=== PATIENT | female | born 1940 | race Caucasian/White ===

== ENCOUNTER → 2017-10-13 | Outpatient (CLI) | payer MEDICARE, BC ==
[~2017-10-13] MED LIST: ALBIPROI INH; ALBU90OI61 INH; ASCO500 PO; AZIT250 PO; Augmentin 875-1 EACH PO; Bactrim Ds Tab1 EACH PO; CELE100; CELE200 PO; DIPATR PO; ERGO400; FISH OIL + D31 EACH; FISH1000; FLUSAL1005 IH; FLUSAL2505 IH; FLUT.05NI; FURO20 PO; HYDACE5 PO; HYDR1TAB94 PO; IBUP800 PO; Imitrex25 MG PO; LEVFLO250; LISI10 PO; LISI20 PO; LISI5 PO; MAGOXI400; MULT50L; MULVITMIND PO; Magnesium27 MG; Norco 5-325 Ta1 EACH PO; OXAP600; OXAP600 PO; OXYM.05NI; PANT40 PO; POLY500; POLY500 PO; POTA10T PO; PRED10; PROP120ER; PROP60 PO; Percocet 5-3251 EACH PO; Pseudoephedrine30 MG PO; RABE20 PO; SERT25; SERT50 PO; SULTRIDS PO; SUMA20NI; SUMA25 PO; THYR60 PO; Vitamin C100 M1; Zofran Odt4 MG PO; Zofran4 MG PO
== END | disposition home or self-care (01) ==
LOC: LAB 16:31
DX: L08.0 Pyoderma (principal)
CPT/HCPCS: 87070; 87205

== ENCOUNTER → 2018-03-02 | Outpatient (CLI) | payer MEDICARE, BC | END | disposition home or self-care (01) | LOC: LAB SHORT 10:49 → PLD 10:49 | DX: D04.39 Carcinoma in situ of skin of other parts of face (principal) | CPT/HCPCS: 88305 ==

== ENCOUNTER → 2018-09-28 | Outpatient (CLI) | payer MEDICARE, BC ==
[2018-09-28 14:34] LABS: Body Fluid Crystals NEG (NEGATIVE)
[2018-09-28 14:49] LABS: BODY FLUID RBC 0.008 (0-0); RBC Count, Synovial Fluid 8000 /mm3 (0-0); WBC Count, Synovial Fluid 68 /mm3 (0-180)
[2018-09-28 14:56] LABS: Appearance, Synovial Fluid Hazy (Clear); Color, Synovial Fluid Dark Yellow (None-P Yel)
[2018-09-28 15:22] LABS: Lymphs, Synovial Fluid 40 % (0-15); Monocytes/Macrophages, Synovia 35 % (0-65); Neutrophils, Synovial Fluid 25 % (0-24)
== END | disposition home or self-care (01) ==
LOC: LAB SHORT 14:10 → LAB 14:10
PROVIDERS: Family Medicine
DX: M17.0 Bilateral primary osteoarthritis of knee (principal)
CPT/HCPCS: 87070; 87075; 87077; 87147; 87186; 87205; 89051; 89060

== ENCOUNTER 2018-11-19 14:32 | Emergency (ER) | payer MEDICARE, BC ==
[~2018-11-19] VITALS: Ht 167.6 cm; Wt 117.9 kg
== END 2018-11-19 16:39 | disposition home or self-care (01) ==
LOC: ER 14:32
DX: G43.009 Migraine without aura, not intractable, without status migrainosus (principal); I10 Essential (primary) hypertension; K21.9 Gastro-esophageal reflux disease without esophagitis; E03.9 Hypothyroidism, unspecified; Z87.891 Personal history of nicotine dependence; Z88.1 Allergy status to other antibiotic agents; Z88.8 Allergy status to other drugs, medicaments and biological substances; Z79.899 Other long term (current) drug therapy
CPT/HCPCS: 36415; 70450; 96361; 96374; 96375; 99284-25; J0780; J1200; J1885; J7030

== ENCOUNTER → 2018-12-07 | Outpatient (CLI) | payer MEDICARE, BC | LOC: LAB 19:01 → LAB SHORT 19:01 | DX: R30.0 Dysuria (principal) | CPT/HCPCS: 87077; 87086; 87186 ==

== ENCOUNTER 2019-04-06 11:24 | Day surgery (SDC) | payer MEDICARE, BC ==
[~2019-04-06] VITALS: Ht 167.6 cm; Wt 104.6 kg
[~2019-04-06 11:24] MED LIST changes: +Adalat Cc30 MG PO; +BUPR75 PO; +CHOL10002 PO; -ERGO400; +ERGO400 PO; +FIBER CAP PO; +GARCINIA CAMBO1 EACH PO; +GREEN COFFEE B400 MG PO; +LEVSOD100 PO; +MAGNESIUM400 MG PO; -Magnesium27 MG; +Magnesium27 MG PO; +NITR100CA PO; -PROP120ER; +PROP120ER PO; +THERA1 EACH PO; -Vitamin C100 M1; +Vitamin C100 M1 PO
--- NOTE | 2019-04-06 12:29 | NUR ---
PATIENT WAS UNABLE TO COME IN ADVANCE FOR HER TYPE AND SCREEN. UPON IV START, SPECIMEN DRAWN AND SENT TO LAB. CALL PLACED TO LAB TO NOTIFY THEM OF SPECIMEN SENT AND A STAT STATUS.
--- NOTE | 2019-04-06 12:32 | NUR ---
Surgical site prepped with 2% Chlorhexidine cloth wipe. History, Chart, Medications and Allergies reviewed before start of procedure. Lungs clear T/O to Auscultation. Patient confirms NPO status and agrees with scheduled surgery. Pre-Op teaching done. Pt verbalizes understanding. Patient reports completing Chlorhexadine shower X2 prior to admission to hospital.
[2019-04-06] MEDS ORDERED: BUPROPION XL150 MG PO (13:38)
--- NOTE | 2019-04-06 17:23 | NUR ---
PT ARRIVED TO THE ROOM AT APPROXIMATELY 1707. PT ALERT AND ORIENTED. VSS. WILL CONTINUE TO MONITOR.
--- NOTE | 2019-04-06 19:51 | NUR ---
SHIFT SUMMARY PAIN MANAGED WITH PO PAIN MEDICATION POST OP. PT HAS FULL SENSATION TO BLE. TOLERATING PO WELL. VSS. REPORT GIVEN TO SATISH ALONZO.
--- NOTE | 2019-04-07 04:00 | NUR ---
NO CHANGES SINCE START OF SHIFT. SAFETY MEASURES IN PLACE. HAND OFF GIVEN TO Trino FOWLER RN USING SBAR.
--- NOTE | 2019-04-07 04:02 | NUR ---
ASSUMED CARE OF PT. PT IS AWAKE, ALERT & ORIENTED X4. PT ASSISTED BACK TO BED FROM BATHROOM. SMALL AMOUNT OF BLEEDING NOTED ON GINO WRAP. BLOOD SPOT WAS TRACED, DATED AND TIMED. POLAR PACK REPLACED. PT STATES PAIN IS TOLERABLE AT THIS TIME. CIRC REMAINS WNL, WCTM. CALL LIGHT IN REACH.
[2019-04-07 04:33] LABS: BASOPHILS ABSOLUTE AUTO 0.03 K/mm3 (0.00-0.23); BASOPHILS PERCENT AUTO 0 % (0-2); EOSINOPHILS PERCENT AUTO 0 % (0-6); Hematocrit 35.1 % (33.0-51.0); Hemoglobin 11.3 g/dL (11.5-16.0); IMMATURE GRAN ABSOLUTE AUTO 0.05 K/mm3 (0.00-0.10); IMMATURE GRAN PERCENT AUTO 0 % (0-1); LYMPHOCYTES ABSOLUTE AUTO 1.74 K/mm3 (0.84-5.20); LYMPHOCYTES PERCENT AUTO 14 % (21-46); MONOCYTES ABSOLUTE AUTO 0.88 K/mm3 (0.16-1.47); MONOCYTES PERCENT AUTO 7 % (4-13); Mean Corpuscular HGB 28.8 pg (26.0-34.0); Mean Corpuscular HGB Conc 32.2 g/dL (31.5-36.5); Mean Corpuscular Volume 89 fL (80-100); Mean Platelet Volume 12.2 fL (9.1-12.4); NEUTROPHILS ABSOLUTE AUTO 10.22 K/mm3 (1.96-9.15); NEUTROPHILS PERCENT AUTO 79 % (41-73); Platelet Count 208 K/mm3 (150-400); RDW Coefficient Variation 13.4 % (11.7-14.2); RDW Standard Deviation 44.2 fL (35.1-46.3); Red Blood Cell Count 3.93 M/mm3 (3.80-5.20); White Blood Cell Count 12.92 K/mm3 (4.00-11.30)
[2019-04-07 04:46] LABS: Anion Gap 7 mmol/L (6-16); Blood Urea Nitrogen 17 mg/dL (8-24); Bun/Creatinine Ratio 19.9 (12.0-20.0); CO2, Blood 26 mmol/L (21-32); Calcium, Blood 8.6 mg/dL (8.5-10.1); Chloride, Blood 106 mmol/L (98-108); Creatinine, Blood 0.85 mg/dL (0.40-1.00); Glomerular Filtration Rate >60 (60-); Glucose, Blood 123 mg/dL (70-99); Magnesium, Blood 1.6 mg/dL (1.6-2.4); Potassium, Blood 4.3 mmol/L (3.5-5.5); Sodium, Blood 139 mmol/L (136-145)
--- NOTE | 2019-04-07 05:33 | NUR ---
PATIENT BACK TO BED AFTER USING RESTROOM. CALL LIGHT IN REACH. RN NOTIFIED OF SOME BLEEDING AT SURGICAL SITE THAT PATIENT NOTICIED.
[2019-04-07] MEDS ORDERED: OXYC5 PO (14:27)
--- NOTE | 2019-04-07 15:52 | NUR ---
DISCHARGE: PT AND FAMILY REPORTS UNDERSTANDING OF DISCHARGE INSTRUCTIONS. PT BEEN CLEARED BY THERAPY TO GO HOME. PT GIVEN BELONGINGS INCLUDING ICE MACHINE. PT GIVEN DISCHARGE PAPERWORK INCLUDING SCRIPT FOR PAIN. PT REPORTS HAVING APPR EQUIP AT HOME FOR DISCHARGE. PT SENT WITH DRESSING SUPPLIES WELL JOSSELINE HOSE. PT BEEN EATING AND DRINKING, VOIDING AND PASSING GAS. IV OUT WNL.
== END 2019-04-07 15:55 | disposition home or self-care (01) ==
LOC: ORSCMMR 11:24 → ORD 14:30 → ORSCMMR 14:30 → SURS 17:12 → ORSCMMR 04-07 15:55 → SURS 04-07 15:55
PROVIDERS: Orthopaedic Surgery
PROC: 0SRC0J9 Replacement of Right Knee Joint with Synthetic Substitute, Cemented, Open Approach (ICD-10-PCS; principal; 2019-04-06 14:30)
DX: M17.11 Unilateral primary osteoarthritis, right knee (principal); I10 Essential (primary) hypertension; I25.2 Old myocardial infarction; E03.9 Hypothyroidism, unspecified; Z79.899 Other long term (current) drug therapy; E66.01 Morbid (severe) obesity due to excess calories; Z68.39 Body mass index [BMI] 39.0-39.9, adult
CPT/HCPCS: 36415; 73560-RT; 80048; 83735; 85025; 86850; 86900; 86901; 88300; 97110; 97116; 97162; 97530; C1713; C1776; J0171; J0690; J0735; J1100; J1885; J2250; J2405; J2704; J2795; J3010; J7120

== ENCOUNTER 2019-09-13 15:00 | Emergency (ER) | payer MEDICARE, BC ==
[~2019-09-13] VITALS: Ht 167.6 cm; Wt 104.3 kg
[~2019-09-13 15:00] MED LIST changes: +BUPROPION XL150 MG PO; +OXYC5 PO
[2019-09-13 15:26] LABS: BASOPHILS ABSOLUTE AUTO 0.02 K/mm3 (0.00-0.23); BASOPHILS PERCENT AUTO 0 % (0-2); EOSINOPHILS ABSOLUTE AUTO 0.09 K/mm3 (0.00-0.68); EOSINOPHILS PERCENT AUTO 1 % (0-6); Hematocrit 39.1 % (33.0-51.0); Hemoglobin 12.5 g/dL (11.5-16.0); IMMATURE GRAN ABSOLUTE AUTO 0.07 K/mm3 (0.00-0.10); IMMATURE GRAN PERCENT AUTO 1 % (0-1); LYMPHOCYTES PERCENT AUTO 15 % (21-46); MONOCYTES ABSOLUTE AUTO 0.91 K/mm3 (0.16-1.47); MONOCYTES PERCENT AUTO 8 % (4-13); Mean Corpuscular Volume 88 fL (80-100); Mean Platelet Volume 11.2 fL (9.1-12.4); NEUTROPHILS ABSOLUTE AUTO 8.21 K/mm3 (1.96-9.15); NEUTROPHILS PERCENT AUTO 75 % (41-73); Platelet Count 233 K/mm3 (150-400); RDW Coefficient Variation 14.2 % (11.7-14.2); RDW Standard Deviation 45.9 fL (35.1-46.3); Red Blood Cell Count 4.47 M/mm3 (3.80-5.20)
[2019-09-13 15:33] LABS: Source, Urine Clean Catch
[2019-09-13 15:45] LABS: Bilirubin, Urine Neg (Neg); Blood, Urine 1+ (Neg); Glucose Qualitative, Urine Neg (Neg); Ketones, Urine Neg (Neg); Leukocyte Esterase, Urine 2+ (Neg); Nitrite, Urine Neg (Neg); Protein, Urine 1+ (Neg); Specific Gravity, Urine 1.015 (1.003-1.022); Urobilinogen, Urine NORM (Normal)
[2019-09-13 15:49] LABS: Alanine Aminotransfer (ALT/SGP 19 U/L (12-78); Albumin, Blood 2.9 g/dL (3.4-5.0); Albumin/Globulin Ratio 0.8 (0.8-1.8); Alk Phos 78 U/L (50-136); Anion Gap 7 mmol/L (6-16); Aspartate Aminotrans (AST/SGOT 16 U/L (12-37); Bilirubin, Total 0.4 mg/dL (0.1-1.0); Blood Urea Nitrogen 16 mg/dL (8-24); Bun/Creatinine Ratio 23.2 (12.0-20.0); CO2, Blood 25 mmol/L (21-32); Calcium, Blood 8.6 mg/dL (8.5-10.1); Chloride, Blood 109 mmol/L (98-108); Creatinine, Blood 0.69 mg/dL (0.40-1.00); Globulin, Blood 3.5 g/dL (2.2-4.0); Glomerular Filtration Rate >60 (60-); Glucose, Blood 125 mg/dL (70-99); Potassium, Blood 3.9 mmol/L (3.5-5.5); Sodium, Blood 141 mmol/L (136-145); Total Protein, Blood 6.4 g/dL (6.4-8.2)
[2019-09-13 15:53] LABS: Appearance, Urine Clear (Clear); Color, Urine Yellow (P-Yellow)
[2019-09-13 15:54] LABS: Bacteria Few /hpf; Red Blood Cells, Urine 0-2 /hpf (0-2); Squamous Epithelial Cells Few /hpf (Few); Transitional Epithelial Cells Few /hpf (0-Rare)
[2019-09-13] MEDS ORDERED: Augmentin 875-1 EACH PO (19:03)
[2019-09-13] MEDS ORDERED: ONDA4ODT MM (19:03)
[2019-09-13] MEDS ORDERED: Percocet 7.5-31 EACH PO (19:03)
[2019-10-04] MEDS ORDERED: OXAP600 PO (08:31)
[2019-10-04] MEDS ORDERED: MULTIPLE VITAM1 EACH PO (08:31)
[2019-10-04] MEDS ORDERED: PROP120ER PO (08:31)
[2019-10-04] MEDS ORDERED: PANT40 PO (08:31)
[2019-10-04] MEDS ORDERED: LEVSOD100 PO (08:32)
[2019-10-04] MEDS ORDERED: BUPR150ER PO (08:32)
[2019-10-04] MEDS ORDERED: ZESTRIL40 M1 PO (08:32)
[2019-10-04] MEDS ORDERED: NIFE30ER PO (08:32)
[2019-10-04] MEDS ORDERED: MAGNESIUM OXID500 MG PO (08:33)
[2019-10-04] MEDS ORDERED: VITAMIN D350000 UNIT PO (08:33)
[2019-10-04] MEDS ORDERED: POLY500 PO (08:33)
[2019-10-04] MEDS ORDERED: GREEN COFFEE B400 MG PO (08:34)
[2019-10-04] MEDS ORDERED: GARCINIA CAMBO1 EACH PO (08:34)
== END 2019-09-13 20:15 | disposition home or self-care (01) ==
LOC: ER 15:00
PROVIDERS: Physician Assistant
DX: J01.90 Acute sinusitis, unspecified (principal); J32.9 Chronic sinusitis, unspecified; Z88.8 Allergy status to other drugs, medicaments and biological substances; Z88.1 Allergy status to other antibiotic agents; Z79.899 Other long term (current) drug therapy; I10 Essential (primary) hypertension; K21.9 Gastro-esophageal reflux disease without esophagitis; E03.9 Hypothyroidism, unspecified; G43.909 Migraine, unspecified, not intractable, without status migrainosus; Z87.891 Personal history of nicotine dependence
CPT/HCPCS: 36415; 70450; 80053; 81001; 85025; 87086; 96361; 96365; 96375; 96376; 99284-25; A9270-GY; J1170; J2405; J2543; J7030

== ENCOUNTER 2019-10-08 10:36 | Day surgery (SDC) | payer MEDICARE, BC ==
[~2019-10-08] VITALS: Ht 167.6 cm; Wt 106.8 kg
[~2019-10-08 10:36] MED LIST changes: +BUPR150ER PO; +MAGNESIUM OXID500 MG PO; +MULTIPLE VITAM1 EACH PO; +NIFE30ER PO; +ONDA4ODT MM; +Percocet 7.5-31 EACH PO; +VITAMIN D350000 UNIT PO; +ZESTRIL40 M1 PO
[2019-10-08] MEDS ORDERED: ZOLOFT50 MG PO (11:28)
[2019-10-08] MEDS ORDERED: SUMA25 PO (11:29)
[2019-10-08] MEDS ORDERED: Augmentin 875-1 EACH PO (11:30)
[2019-10-08] MEDS ORDERED: PRED20 PO (11:30)
[2019-10-08] MEDS ORDERED: TRAM50 PO (11:31)
--- NOTE | 2019-10-08 12:32 | NUR ---
10/08/19 1232 Sulema Hunter PT RESTING IN BED, LIGHTS DIMMED PER REQUEST, SON AT BEDSIDE. PT UPDATED ON DELAY. PT DENIES NEEDS AT THIS TIME. CALL LIGHT WITHIN REACH.
--- NOTE | 2019-10-08 13:31 | NUR ---
10/08/19 1331 Pastora Valverde A BRUISE NOTED TO LEFT INNER THIGH WHEN APPLYING GROUNDING PAD.
--- NOTE | 2019-10-08 15:50 | NUR ---
10/08/19 5660 Saima Nguyen PT. VERBALIZES MOUTH BEING DRY. PT. DRINKING WATER. PT. C/O NOSE BURNING SO MEDICATED WITH FENTANYL FOR BURNING PER DR. HARPER. SON AT HER SIDE.
== END 2019-10-08 16:50 | disposition home or self-care (01) ==
LOC: ORSCSDS 10:36
PROVIDERS: Otolaryngology
PROC: 8E09XBZ Computer Assisted Procedure of Head and Neck Region (ICD-10-PCS; principal; 2019-10-08 12:00)
PROC: 09DV4ZZ Extraction of Left Ethmoid Sinus, Percutaneous Endoscopic Approach (ICD-10-PCS; principal; 2019-10-08 12:00)
DX: J32.4 Chronic pansinusitis (principal); I10 Essential (primary) hypertension; I25.2 Old myocardial infarction; E66.01 Morbid (severe) obesity due to excess calories; Z68.38 Body mass index [BMI] 38.0-38.9, adult; Z79.899 Other long term (current) drug therapy
CPT/HCPCS: 87070; 87077; 87186; 87205; 88305; 88312; J0360; J1100; J2250; J2405; J2704; J3010; J7120

== ENCOUNTER → 2019-11-25 | Outpatient (CLI) | payer MEDICARE, BC ==
[~2019-11-25] MED LIST changes: +PRED20 PO; +TRAM50 PO; +ZOLOFT50 MG PO
== END | disposition home or self-care (01) ==
LOC: LAB SHORT 15:35 → LAB 15:35
DX: J01.80 Other acute sinusitis (principal); J32.0 Chronic maxillary sinusitis; J32.8 Other chronic sinusitis
CPT/HCPCS: 87070; 87077; 87186

== ENCOUNTER 2020-08-17 06:36 | Day surgery (SDC) | payer MEDICARE, BC ==
[~2020-08-17] VITALS: Ht 167.6 cm; Wt 115.6 kg
[~2020-08-17 06:36] MED LIST changes: +Cipro500 MG PO; +Levaquin500 MG
--- NOTE | 2020-08-17 07:36 | NUR ---
08/17/20 0736 Michelle Martino LATE ENTRY---PATIENT MULTIPLE IV STICKS DIFFICULT VEINS---1 ATTEMPT IN LEFT WRIST THEN 1 ATTEMPT IN LEFT AC BY ORSC.DFT THEN 1 ATTEMPT RIGHT HAND 1 ATTEMPT RIGHT FOREARM AND GOOD IV IN RIGHT AC BY ORSC.JST PATIENT TOLERATED ALL ATTEMPTS WITH MINIMAL DISCOMFORT
--- NOTE | 2020-08-17 07:52 | NUR ---
08/17/20 0752 Celia Cline 30 MG EPI USED TO SOAK PLEDGETS FOR PACKING
--- NOTE | 2020-08-17 09:36 | NUR ---
08/17/20 0936 Kristel Wetzel V PT RESTING IN RECLINER, FEET ELEVATED, VSS. PT DENIES PAIN BUT STATES SHE IS "ON THE VERGE OF NAUSEA". RN OFFERED PT CRACKERS, SODA, OR A COOL CLOTH ALL OF WHICH PT REFUSED; NO INTERVENTIONS DONE AT THIS TIME. MUSTACH DRESSING WAS REMOVED PER PT'S REQUEST SO SHE COULD "BREATHE BETTER", SMALL DROP OF BLOOD WAS NOTED ON THE DRESSING, NO FURTHER BLEEDING NOTED.
== END 2020-08-17 10:18 | disposition home or self-care (01) ==
LOC: ORSCSDS 06:36
PROVIDERS: Otolaryngology
PROC: 8E09XBZ Computer Assisted Procedure of Head and Neck Region (ICD-10-PCS; principal; 2020-08-17 07:30)
PROC: 09TV4ZZ Resection of Left Ethmoid Sinus, Percutaneous Endoscopic Approach (ICD-10-PCS; principal; 2020-08-17 07:30)
DX: J32.8 Other chronic sinusitis (principal); I10 Essential (primary) hypertension; K21.9 Gastro-esophageal reflux disease without esophagitis; E66.01 Morbid (severe) obesity due to excess calories; Z68.41 Body mass index [BMI] 40.0-44.9, adult; Z79.899 Other long term (current) drug therapy
CPT/HCPCS: 87070; 87075; 87076; 87077; 87185; 87186; 87205; A9270; J0171; J1100; J2250; J2405; J2704; J2710; J3010; J7120

== ENCOUNTER → 2020-11-01 | Outpatient (CLI) | payer MEDICARE, BC ==
[~2020-11-01] MED LIST changes: +ACET500 PO; +AMOCLA875 PO; +Aspir 8181 MG PO; +DICY20 PO; +ONDA4ODT SL
== END ==
LOC: LAB 18:07 → LAB SHORT 18:07
DX: R30.0 Dysuria (principal)
CPT/HCPCS: 87077; 87086; 87186

== ENCOUNTER 2020-11-12 14:14 | Emergency (ER) | payer MEDICARE, BC ==
[~2020-11-12] VITALS: Ht 167.6 cm; Wt 114.3 kg
[~2020-11-12 14:14] MED LIST changes: -ACET500 PO; -AMOCLA875 PO; -Aspir 8181 MG PO; -DICY20 PO; -ONDA4ODT SL
[2020-11-12 14:57] LABS: BASOPHILS ABSOLUTE AUTO 0.05 K/mm3 (0.00-0.23); BASOPHILS PERCENT AUTO 1 % (0-2); EOSINOPHILS ABSOLUTE AUTO 0.37 K/mm3 (0.00-0.68); EOSINOPHILS PERCENT AUTO 4 % (0-6); Hematocrit 39.3 % (33.0-51.0); Hemoglobin 12.6 g/dL (11.5-16.0); IMMATURE GRAN ABSOLUTE AUTO 0.03 K/mm3 (0.00-0.10); IMMATURE GRAN PERCENT AUTO 0 % (0-1); LYMPHOCYTES ABSOLUTE AUTO 2.03 K/mm3 (0.84-5.20); LYMPHOCYTES PERCENT AUTO 20 % (21-46); MONOCYTES ABSOLUTE AUTO 0.96 K/mm3 (0.16-1.47); MONOCYTES PERCENT AUTO 10 % (4-13); Mean Corpuscular HGB 28.3 pg (26.0-34.0); Mean Corpuscular HGB Conc 32.1 g/dL (31.5-36.5); Mean Corpuscular Volume 88 fL (80-100); NEUTROPHILS ABSOLUTE AUTO 6.58 K/mm3 (1.96-9.15); NEUTROPHILS PERCENT AUTO 66 % (41-73); Platelet Count 224 K/mm3 (150-400); RDW Coefficient Variation 13.6 % (11.7-14.2); Red Blood Cell Count 4.45 M/mm3 (3.80-5.20); White Blood Cell Count 10.02 K/mm3 (4.00-11.30)
[2020-11-12 15:30] LABS: Alanine Aminotransfer (ALT/SGP 23 U/L (12-78); Albumin, Blood 3.6 g/dL (3.4-5.0); Alk Phos 61 U/L (50-136); Anion Gap 6 mmol/L (6-16); Aspartate Aminotrans (AST/SGOT 23 U/L (12-37); Bilirubin, Total 0.4 mg/dL (0.1-1.0); Blood Urea Nitrogen 18 mg/dL (8-24); Bun/Creatinine Ratio 25.9 (12.0-20.0); CO2, Blood 27 mmol/L (21-32); Calcium, Blood 9.3 mg/dL (8.5-10.1); Chloride, Blood 110 mmol/L (98-108); Globulin, Blood 3.7 g/dL (2.2-4.0); Glomerular Filtration Rate >60 (60-); Glucose, Blood 99 mg/dL (70-99); Potassium, Blood 3.9 mmol/L (3.5-5.5); Sodium, Blood 143 mmol/L (136-145); Total Protein, Blood 7.3 g/dL (6.4-8.2)
[2020-11-12 16:16] LABS: Source, Urine Clean Catch
[2020-11-12 16:20] LABS: Appearance, Urine Clear (Clear); Bilirubin, Urine Neg (Neg); Blood, Urine Neg (Neg); Color, Urine Yellow (P-Yellow); Glucose Qualitative, Urine Neg (Neg); Ketones, Urine Neg (Neg); Leukocyte Esterase, Urine 1+ (Neg); Nitrite, Urine Neg (Neg); Protein, Urine Neg (Neg); Specific Gravity, Urine 1.025 (1.003-1.022); Urobilinogen, Urine NORM (Normal)
[2020-11-12 16:27] LABS: Amorphous Light (0-Heavy); Bacteria Few /hpf; Red Blood Cells, Urine 0-2 /hpf (0-2); Squamous Epithelial Cells Few /hpf (Few); White Blood Cells, Urine 0-2 /hpf (0-5)
[2020-11-12] MEDS ORDERED: HYDR1TAB94 PO (18:13)
[2020-11-12] MEDS ORDERED: ONDA4ODT SL (18:13)
[2020-11-12] MEDS ORDERED: AMOCLA875 PO (18:13)
== END 2020-11-12 19:15 | disposition home or self-care (01) ==
LOC: ER 14:14
PROVIDERS: Physician Assistant
DX: K57.30 Diverticulosis of large intestine without perforation or abscess without bleeding (principal); I10 Essential (primary) hypertension; R11.2 Nausea with vomiting, unspecified; E03.9 Hypothyroidism, unspecified; J45.909 Unspecified asthma, uncomplicated; Z88.8 Allergy status to other drugs, medicaments and biological substances; Z88.2 Allergy status to sulfonamides; Z88.1 Allergy status to other antibiotic agents; Z79.899 Other long term (current) drug therapy
CPT/HCPCS: 36415; 74177; 80053; 81001; 85025; 87086; 96361; 96365-59; 96375; 99284-25; A9270; J1170; J2405; J2543; J7120; Q9967

== ENCOUNTER 2020-12-07 21:00 | Emergency (ER) | payer MEDICARE, BC ==
[~2020-12-07] VITALS: Ht 167.6 cm; Wt 114.8 kg
[~2020-12-07 21:00] MED LIST changes: +AMOCLA875 PO; +ONDA4ODT SL
[2020-12-07 21:27] LABS: BASOPHILS ABSOLUTE AUTO 0.05 K/mm3 (0.00-0.23); BASOPHILS PERCENT AUTO 0 % (0-2); EOSINOPHILS ABSOLUTE AUTO 0.36 K/mm3 (0.00-0.68); EOSINOPHILS PERCENT AUTO 3 % (0-6); Hematocrit 37.8 % (33.0-51.0); Hemoglobin 12.2 g/dL (11.5-16.0); IMMATURE GRAN ABSOLUTE AUTO 0.04 K/mm3 (0.00-0.10); IMMATURE GRAN PERCENT AUTO 0 % (0-1); LYMPHOCYTES ABSOLUTE AUTO 1.59 K/mm3 (0.84-5.20); LYMPHOCYTES PERCENT AUTO 12 % (21-46); MONOCYTES ABSOLUTE AUTO 1.03 K/mm3 (0.16-1.47); MONOCYTES PERCENT AUTO 8 % (4-13); Mean Corpuscular HGB 28.2 pg (26.0-34.0); Mean Corpuscular HGB Conc 32.3 g/dL (31.5-36.5); Mean Corpuscular Volume 87 fL (80-100); Mean Platelet Volume 11.9 fL (9.1-12.4); NEUTROPHILS ABSOLUTE AUTO 9.84 K/mm3 (1.96-9.15); NEUTROPHILS PERCENT AUTO 76 % (41-73); Platelet Count 266 K/mm3 (150-400); RDW Standard Deviation 45.5 fL (35.1-46.3); Red Blood Cell Count 4.33 M/mm3 (3.80-5.20); White Blood Cell Count 12.91 K/mm3 (4.00-11.30)
[2020-12-07 21:46] LABS: Alanine Aminotransfer (ALT/SGP 23 U/L (12-78); Albumin, Blood 3.5 g/dL (3.4-5.0); Albumin/Globulin Ratio 0.9 (0.8-1.8); Alk Phos 59 U/L (50-136); Anion Gap 5 mmol/L (6-16); Aspartate Aminotrans (AST/SGOT 21 U/L (12-37); Bilirubin, Total 0.4 mg/dL (0.1-1.0); Blood Urea Nitrogen 19 mg/dL (8-24); Bun/Creatinine Ratio 26.7 (12.0-20.0); CO2, Blood 28 mmol/L (21-32); Calcium, Blood 9.3 mg/dL (8.5-10.1); Chloride, Blood 107 mmol/L (98-108); Creatinine, Blood 0.71 mg/dL (0.40-1.00); Glomerular Filtration Rate >60 (60-); Glucose, Blood 135 mg/dL (70-99); Potassium, Blood 4.2 mmol/L (3.5-5.5); Sodium, Blood 140 mmol/L (136-145); Total Protein, Blood 7.5 g/dL (6.4-8.2)
[2020-12-07 23:04] LABS: Source, Urine Clean Catch
[2020-12-07 23:07] LABS: Bilirubin, Urine Neg (Neg); Blood, Urine 2+ (Neg); Glucose Qualitative, Urine Neg (Neg); Ketones, Urine Neg (Neg); Leukocyte Esterase, Urine 1+ (Neg); Nitrite, Urine Pos (Neg); Protein, Urine Neg (Neg); Specific Gravity, Urine 1.015 (1.003-1.022); Urobilinogen, Urine NORM (Normal)
[2020-12-07 23:12] LABS: Appearance, Urine Hazy (Clear); Color, Urine Yellow (P-Yellow)
[2020-12-07 23:20] LABS: Bacteria Many /hpf; Red Blood Cells, Urine Rare /hpf (0-2); Squamous Epithelial Cells Not Seen /hpf (Few); White Blood Cells, Urine 0-2 /hpf (0-5)
[2020-12-07] MEDS ORDERED: AMOCLA875 PO (23:41)
[2020-12-07] MEDS ORDERED: DICY20 PO (23:41)
== END 2020-12-08 00:08 | disposition home or self-care (01) ==
LOC: ER 21:00
PROVIDERS: Physician Assistant
DX: K57.32 Diverticulitis of large intestine without perforation or abscess without bleeding (principal); I10 Essential (primary) hypertension; K21.9 Gastro-esophageal reflux disease without esophagitis; E03.9 Hypothyroidism, unspecified; J45.909 Unspecified asthma, uncomplicated; Z88.1 Allergy status to other antibiotic agents; Z88.8 Allergy status to other drugs, medicaments and biological substances; Z88.2 Allergy status to sulfonamides; Z79.899 Other long term (current) drug therapy
CPT/HCPCS: 36415; 74177; 80053; 81001; 83605; 83690; 85025; 87077; 87086; 87186; 96372-59; 99284-25; A9270; J0500; Q9967

== ENCOUNTER 2021-04-02 10:21 | Day surgery (SDC) | payer MEDICARE, BC ==
[~2021-04-02] VITALS: Ht 167.6 cm; Wt 112.2 kg
[~2021-04-02 10:21] MED LIST changes: +DICY20 PO
--- NOTE | 2021-04-02 11:41 | NUR ---
History, Chart, Medications and Allergies reviewed before start of procedure.Pre-Op teaching done. Pt verbalizes understanding.
--- NOTE | 2021-04-02 12:48 | NUR ---
CONFIRMED ANCEF ORDER WITH DR DESPITE CEPHALOSPORIN ALLERGY. PT HAS HX OF TAKING ANCEF IN 2019 WITH NO ADVERSE REACTION.
--- NOTE | 2021-04-02 18:57 | NUR ---
SHIFT SUMMARY PT STATUS POST FOR L TOTAL KNEE. AQUACEL DRESSING IN PLACE CDI, POLAR PACK DRESSING PLACE. NO C/O PAIN AND IS ABLE TO WIGGLE TOES BUT CANNOT FEEL FEET. PT HYPERTENSIVE AFTER SURGERY, WHICH IS HER BASELINE AND STARTED ON HOME BP MEDICATIONS. A/O X4 AND ABLE TO MAKE NEEDS KNOWN. WILL REPORT TO SATISH ALONZO.
--- NOTE | 2021-04-03 04:36 | NUR ---
SHIFT SUMMARY PT DOING WELL POST OP. TYLENOL + TORADOL + 1 ROXICODONE FOR PAIN MANAGMENT. UP TO BRP WITH 1 ASSIST USING FWW + GB AND WBAT. AQUACEL DRESSING TO LEFT KNEE REMAINS CDI WITH POLAR PACK IN PLACE. IV SL. GOOD PO INTAKE. PLAN FOR PT/OT TODAY. USES CALL LIGHT APPROPRIATELY.
[2021-04-03 05:13] LABS: BASOPHILS ABSOLUTE AUTO 0.02 K/mm3 (0.00-0.23); BASOPHILS PERCENT AUTO 0 % (0-2); EOSINOPHILS PERCENT AUTO 0 % (0-6); Hematocrit 36.5 % (33.0-51.0); Hemoglobin 11.7 g/dL (11.5-16.0); IMMATURE GRAN ABSOLUTE AUTO 0.03 K/mm3 (0.00-0.10); IMMATURE GRAN PERCENT AUTO 0 % (0-1); LYMPHOCYTES ABSOLUTE AUTO 1.08 K/mm3 (0.84-5.20); LYMPHOCYTES PERCENT AUTO 12 % (21-46); MONOCYTES ABSOLUTE AUTO 0.56 K/mm3 (0.16-1.47); MONOCYTES PERCENT AUTO 6 % (4-13); Mean Corpuscular HGB 28.7 pg (26.0-34.0); Mean Corpuscular HGB Conc 32.1 g/dL (31.5-36.5); Mean Corpuscular Volume 90 fL (80-100); Mean Platelet Volume 12.4 fL (9.1-12.4); NEUTROPHILS ABSOLUTE AUTO 7.18 K/mm3 (1.96-9.15); NEUTROPHILS PERCENT AUTO 81 % (41-73); Platelet Count 164 K/mm3 (150-400); RDW Coefficient Variation 13.4 % (11.7-14.2); RDW Standard Deviation 43.6 fL (35.1-46.3); Red Blood Cell Count 4.07 M/mm3 (3.80-5.20); White Blood Cell Count 8.87 K/mm3 (4.00-11.30)
[2021-04-03 05:39] LABS: Anion Gap 6 mmol/L (6-16); Blood Urea Nitrogen 17 mg/dL (8-24); Bun/Creatinine Ratio 22.7 (12.0-20.0); CO2, Blood 27 mmol/L (21-32); Calcium, Blood 8.5 mg/dL (8.5-10.1); Chloride, Blood 104 mmol/L (98-108); Creatinine, Blood 0.75 mg/dL (0.40-1.00); Glomerular Filtration Rate >60 (60-); Glucose, Blood 134 mg/dL (70-99); Magnesium, Blood 1.9 mg/dL (1.6-2.4); Potassium, Blood 4.1 mmol/L (3.5-5.5); Sodium, Blood 137 mmol/L (136-145)
[2021-04-03] MEDS ORDERED: ACET500 PO (09:58)
[2021-04-03] MEDS ORDERED: Aspir 8181 MG PO (09:58)
[2021-04-03] MEDS ORDERED: OXYC5 PO (09:59)
--- NOTE | 2021-04-03 10:38 | NUR ---
DC'D HOME, CLEARED PHYS. 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
== END 2021-04-03 10:33 | disposition home or self-care (01) ==
LOC: ORSCMMR 10:21 → ORD 12:30 → ORSCMMR 12:30 → SURS 16:09 → ORSCMMR 04-03 10:33 → SURS 04-03 10:33
PROVIDERS: Orthopaedic Surgery
PROC: 8E0Y0CZ Robotic Assisted Procedure of Lower Extremity, Open Approach (ICD-10-PCS; principal; 2021-04-02 12:30)
PROC: 0SRD0JA Replacement of Left Knee Joint with Synthetic Substitute, Uncemented, Open Approach (ICD-10-PCS; principal; 2021-04-02 12:30)
DX: M17.12 Unilateral primary osteoarthritis, left knee (principal); I10 Essential (primary) hypertension; K21.9 Gastro-esophageal reflux disease without esophagitis; E03.9 Hypothyroidism, unspecified; E66.01 Morbid (severe) obesity due to excess calories; Z68.39 Body mass index [BMI] 39.0-39.9, adult; Z79.899 Other long term (current) drug therapy
CPT/HCPCS: 27447; S2900; 36415; 73560-LT; 80048; 83735; 85025; 97110; 97116; 97162; A9270; C1776; J0171; J0690; J0735; J1100; J1885; J2250; J2405; J2704; J2795; J3010; J7120

== ENCOUNTER → 2021-07-17 | Outpatient (CLI) | payer MEDICARE, BC ==
[~2021-07-17] MED LIST changes: +ACET500 PO; +Aspir 8181 MG PO
[2021-07-17 13:43] LABS: Appearance, Urine Cloudy (Clear); Bilirubin, Urine Neg (Neg); Blood, Urine Neg (Neg); Color, Urine Yellow (P-Yellow); Glucose Qualitative, Urine Neg (Neg); Ketones, Urine Neg (Neg); Leukocyte Esterase, Urine 1+ (Neg); Nitrite, Urine Pos (Neg); Protein, Urine 1+ (Neg); Specific Gravity, Urine 1.025 (1.003-1.022); Urobilinogen, Urine NORM (Normal)
[2021-07-17 14:00] LABS: Amorphous Light (0-Heavy); Bacteria Many /hpf; Red Blood Cells, Urine 0-2 /hpf (0-2); Squamous Epithelial Cells Few /hpf (Few); White Blood Cells, Urine 0-2 /hpf (0-5)
== END | disposition home or self-care (01) ==
LOC: LAB SHORT 11:39 → LAB 11:39 → LAB FUT 07-16 14:40
PROVIDERS: Legal Medicine
DX: N39.0 Urinary tract infection, site not specified (principal)
CPT/HCPCS: 81001; 87077; 87086; 87186

== ENCOUNTER 2021-08-27 09:26 | Emergency (ER) | payer MEDICARE, BC ==
[~2021-08-27] VITALS: Ht 167.6 cm; Wt 114.3 kg
[2021-08-27 11:45] LABS: Source, Urine Catheter
[2021-08-27 11:48] LABS: Appearance, Urine Clear (Clear); Bilirubin, Urine Neg (Neg); Blood, Urine 1+ (Neg); Color, Urine Yellow (P-Yellow); Glucose Qualitative, Urine 2+ (Neg); Ketones, Urine Neg (Neg); Leukocyte Esterase, Urine Neg (Neg); Nitrite, Urine Pos (Neg); Protein, Urine 2+ (Neg); Urobilinogen, Urine NORM (Normal); pH, Urine 6.5 (5.0-8.0)
[2021-08-27 11:58] LABS: White Blood Cells, Urine 0-2 /hpf (0-5)
[2021-08-27 12:00] LABS: Amorphous Mod (0-Heavy); Bacteria Many /hpf; Mucus Light (0-Heavy); Squamous Epithelial Cells Few /hpf (Few)
[2021-08-27] MEDS ORDERED: ONDA4ODT SL (12:29)
[2021-08-27] MEDS ORDERED: MECL12.5 PO (12:29)
== END 2021-08-27 13:03 | disposition home or self-care (01) ==
LOC: ER 09:26
PROVIDERS: Emergency Medicine
DX: R42 Dizziness and giddiness (principal); K21.9 Gastro-esophageal reflux disease without esophagitis; I10 Essential (primary) hypertension; E03.9 Hypothyroidism, unspecified; G43.909 Migraine, unspecified, not intractable, without status migrainosus; Z87.891 Personal history of nicotine dependence; Z88.8 Allergy status to other drugs, medicaments and biological substances; Z88.1 Allergy status to other antibiotic agents; Z79.899 Other long term (current) drug therapy
CPT/HCPCS: 81001; 87077; 87086; 87186; 93005; 93010; 96374; 99284-25; A9270; J1790; J7030

== ENCOUNTER 2022-12-11 09:01 | Day surgery (SDC) | payer MEDICARE, BC ==
[~2022-12-11] VITALS: Ht 167.6 cm; Wt 112.3 kg
[~2022-12-11 09:01] MED LIST changes: +MECL12.5 PO
[2022-12-11] MEDS ORDERED: OXYB5 (09:41)
== END 2022-12-11 12:25 | disposition home or self-care (01) ==
LOC: ORSCSDS 09:01
PROVIDERS: Internal Medicine Gastroenterology
PROC: 0D757ZZ Dilation of Esophagus, Via Natural or Artificial Opening (ICD-10-PCS; principal; 2022-12-11 10:15)
PROC: 0DBH8ZX Excision of Cecum, Via Natural or Artificial Opening Endoscopic, Diagnostic (ICD-10-PCS; principal; 2022-12-11 10:15)
PROC: 3E0H8GC Introduction of Other Therapeutic Substance into Lower GI, Via Natural or Artificial Opening Endoscopic (ICD-10-PCS; principal; 2022-12-11 10:15)
PROC: 0DBE8ZX Excision of Large Intestine, Via Natural or Artificial Opening Endoscopic, Diagnostic (ICD-10-PCS; principal; 2022-12-11 10:15)
PROC: 0DBN8ZX Excision of Sigmoid Colon, Via Natural or Artificial Opening Endoscopic, Diagnostic (ICD-10-PCS; principal; 2022-12-11 10:15)
PROC: 0DB98ZX Excision of Duodenum, Via Natural or Artificial Opening Endoscopic, Diagnostic (ICD-10-PCS; principal; 2022-12-11 10:15)
DX: Z12.11 Encounter for screening for malignant neoplasm of colon (principal); Z86.010 Personal history of colon polyps; K21.9 Gastro-esophageal reflux disease without esophagitis; R13.14 Dysphagia, pharyngoesophageal phase; K57.30 Diverticulosis of large intestine without perforation or abscess without bleeding; D12.5 Benign neoplasm of sigmoid colon; D12.0 Benign neoplasm of cecum; K22.2 Esophageal obstruction; K44.9 Diaphragmatic hernia without obstruction or gangrene; E66.01 Morbid (severe) obesity due to excess calories; Z68.41 Body mass index [BMI] 40.0-44.9, adult; I10 Essential (primary) hypertension; I25.2 Old myocardial infarction; E03.9 Hypothyroidism, unspecified; F41.8 Other specified anxiety disorders; Z79.899 Other long term (current) drug therapy
CPT/HCPCS: 88305; J2001; J2704; J7120

== ENCOUNTER → 2023-01-25 | Outpatient (CLI) | payer MEDICARE, BC ==
[~2023-01-25] MED LIST changes: +OXYB5
== END | disposition home or self-care (01) ==
LOC: LAB SHORT 08:20 → LAB 08:20
DX: R30.0 Dysuria (principal)
CPT/HCPCS: 87077; 87086; 87147; 87186

== ENCOUNTER 2023-05-12 16:27 | Emergency (ER) | payer MEDICARE, BC ==
[~2023-05-12] VITALS: Ht 167.6 cm; Wt 115.0 kg
[2023-05-12 17:29] LABS: BASOPHILS ABSOLUTE AUTO 0.04 K/mm3 (0.00-0.23); BASOPHILS PERCENT AUTO 1 % (0-2); EOSINOPHILS ABSOLUTE AUTO 0.23 K/mm3 (0.00-0.68); EOSINOPHILS PERCENT AUTO 4 % (0-6); Hematocrit 39.6 % (33.0-51.0); Hemoglobin 13.3 g/dL (11.5-16.0); IMMATURE GRAN ABSOLUTE AUTO 0.01 K/mm3 (0.00-0.10); IMMATURE GRAN PERCENT AUTO 0 % (0-1); LYMPHOCYTES PERCENT AUTO 36 % (21-46); MONOCYTES ABSOLUTE AUTO 0.57 K/mm3 (0.16-1.47); MONOCYTES PERCENT AUTO 9 % (4-13); Mean Corpuscular HGB 29.8 pg (26.0-34.0); Mean Corpuscular HGB Conc 33.6 g/dL (31.5-36.5); Mean Corpuscular Volume 89 fL (80-100); Mean Platelet Volume 12.5 fL (9.1-12.4); NEUTROPHILS PERCENT AUTO 50 % (41-73); Platelet Count 206 K/mm3 (150-400); RDW Coefficient Variation 12.9 % (11.7-14.2); Red Blood Cell Count 4.47 M/mm3 (3.80-5.20); White Blood Cell Count 6.05 K/mm3 (4.00-11.30)
[2023-05-12 17:37] LABS: Source, Urine Clean Catch
[2023-05-12 17:41] LABS: Appearance, Urine Cloudy (Clear); Bilirubin, Urine Neg (Neg); Blood, Urine Neg (Neg); Color, Urine Yellow (P-Yellow); Glucose Qualitative, Urine Neg (Neg); Ketones, Urine Neg (Neg); Leukocyte Esterase, Urine 1+ (Neg); Nitrite, Urine Pos (Neg); Protein, Urine Neg (Neg); Specific Gravity, Urine 1.025 (1.003-1.022); Urobilinogen, Urine NORM (Normal)
[2023-05-12] MEDS ORDERED: GABA100 PO (17:42)
[2023-05-12] MEDS ORDERED: COLESTIPOL HCL1 G1 PO (17:43)
[2023-05-12 17:45] LABS: Albumin, Blood 3.5 g/dL (3.4-5.0); Albumin/Globulin Ratio 0.9 (0.8-1.8); Bilirubin, Total 0.4 mg/dL (0.1-1.0); Calcium, Blood 8.7 mg/dL (8.5-10.1); Creatinine, Blood 0.65 mg/dL (0.40-1.00); Globulin, Blood 3.7 g/dL (2.2-4.0); Potassium, Blood 3.5 mmol/L (3.5-5.5); Total Protein, Blood 7.2 g/dL (6.4-8.2)
[2023-05-12 18:02] LABS: Red Blood Cells, Urine 0-2 /hpf (0-2); Yeast/Fungi Urine Rare /hpf
[2023-05-12 18:03] LABS: Bacteria Many /hpf; Calcium Oxalate Crystals Few /hpf; Squamous Epithelial Cells Few /hpf (Few)
[2023-05-12] MEDS ORDERED: CEPH500 PO ×2 (18:05→18:17)
[2023-05-12] MEDS ORDERED: FLUC150A PO (18:05)
[2023-05-12 18:19] VITALS: BP 187/86
== END 2023-05-12 18:34 | disposition home or self-care (01) ==
LOC: ER 16:27
PROVIDERS: Student in an Organized Health Care Education/Training Program
DX: R51.9 Headache, unspecified (principal); N39.0 Urinary tract infection, site not specified; I10 Essential (primary) hypertension; J45.909 Unspecified asthma, uncomplicated; Z87.891 Personal history of nicotine dependence
CPT/HCPCS: 80053; 81001; 85025; A9270

== ENCOUNTER 2023-10-23 07:03 | Observation (INO) | payer MEDICARE, BC ==
[~2023-10-23] VITALS: Ht 167.6 cm; Wt 115.7 kg
[~2023-10-23 07:03] MED LIST changes: +CEPH500 PO; +COLESTIPOL HCL1 G1 PO; +FLUC150A PO; +GABA100 PO
[2023-10-23 07:34] LABS: BASOPHILS ABSOLUTE AUTO 0.04 K/mm3 (0.00-0.23); BASOPHILS PERCENT AUTO 1 % (0-2); EOSINOPHILS ABSOLUTE AUTO 0.17 K/mm3 (0.00-0.68); EOSINOPHILS PERCENT AUTO 3 % (0-6); Hematocrit 41.4 % (33.0-51.0); Hemoglobin 13.8 g/dL (11.5-16.0); IMMATURE GRAN ABSOLUTE AUTO 0.02 K/mm3 (0.00-0.10); IMMATURE GRAN PERCENT AUTO 0 % (0-1); LYMPHOCYTES PERCENT AUTO 40 % (21-46); MONOCYTES ABSOLUTE AUTO 0.55 K/mm3 (0.16-1.47); MONOCYTES PERCENT AUTO 11 % (4-13); Mean Corpuscular HGB 29.6 pg (26.0-34.0); Mean Corpuscular HGB Conc 33.3 g/dL (31.5-36.5); Mean Corpuscular Volume 89 fL (80-100); Mean Platelet Volume 11.9 fL (9.1-12.4); NEUTROPHILS ABSOLUTE AUTO 2.35 K/mm3 (1.96-9.15); NEUTROPHILS PERCENT AUTO 45 % (41-73); Platelet Count 203 K/mm3 (150-400); RDW Coefficient Variation 13.2 % (11.7-14.2); RDW Standard Deviation 42.3 fL (35.1-46.3); Red Blood Cell Count 4.67 M/mm3 (3.80-5.20); White Blood Cell Count 5.23 K/mm3 (4.00-11.30)
[2023-10-23 07:46] LABS: Albumin, Blood 3.3 g/dL (3.4-5.0); Bilirubin, Total 0.4 mg/dL (0.1-1.0); Bun/Creatinine Ratio 25.8 (12.0-20.0); Calcium, Blood 8.8 mg/dL (8.5-10.1); Creatinine, Blood 0.66 mg/dL (0.40-1.00); Globulin, Blood 3.2 g/dL (2.2-4.0); Potassium, Blood 3.8 mmol/L (3.5-5.5); Total Protein, Blood 6.5 g/dL (6.4-8.2)
[2023-10-23] MEDS ORDERED: Potassium Chloride 20 MEQ/15 ML UDC PO ONE (08:40)
[2023-10-23 09:04] LABS: Free Thyroxine 1.37 ng/dL (0.70-1.60); Magnesium, Blood 1.8 mg/dL (1.6-2.4); Thyroid Stimulating Hormone 0.498 uIU/mL (0.360-4.800); Triiodothyronine, Free 1.89 pg/mL (2.18-3.98)
[2023-10-23] MEDS ORDERED: Acetaminophen 325 MG TABLET PO PRN (10:35)
[2023-10-23] MEDS ORDERED: HydrALAZINE HCl 20 MG / ML 1ML Vial IV PRN (10:35)
[2023-10-23] MEDS ORDERED: FLU VACC QS2023-24(6MOS UP)/PF 60 MCG/0.5 ML SYRINGE IM SCH (10:35)
[2023-10-23 12:30] VITALS: BP 156/96
--- NOTE | 2023-10-23 14:35 | NUR ---
telemetry telelmetry applied. pt sr/sb rate 58 bpm. Care ongoing.
[2023-10-23 15:56] VITALS: BP 154/73
--- NOTE | 2023-10-23 19:35 | NUR ---
NOTE ALERT AND ORIENTED. SR/SB. RATE 58-70. VSS. UP SBA TO BATHROOM. GAIT STEADY. PT HAS HX OF FALLING AT HOME. FAMILY AT BEDSIDE. PT DINNER TRAY DID NOT ARRIVE. KITCHEN CALLED. MEAASAGE LEFT. NO DINNER TRAY ARRIVED. PROVIDED LEAN CUISINE MICROWAVE FOOD, MILK AND ORANGE SHERBERT INSTEAD. H/L. RA. CARE ONGOING.
[2023-10-23 19:39] VITALS: BP 189/87
[2023-10-23 20:54] VITALS: BP 158/72
[2023-10-23] MEDS ORDERED: Docusate Sodium 100 MG Cap PO SCH (21:00)
[2023-10-23] MEDS ORDERED: Metoprolol Tartrate 25 MG Tab PO SCH (21:00)
[2023-10-23] MEDS ORDERED: Primidone 50 MG Tab PO SCH (21:00)
[2023-10-23] MEDS ORDERED: Apixaban 5 MG Tab PO SCH (23:00)
--- NOTE | 2023-10-24 04:52 | NUR ---
1900: ASSUMED CARE OF PT, BEDSIDE REPORT RECEIVED FROM LEXII ALONZO. PT IS SITTING UP IN BED. A/OX4. TELEMETRY IN PLACE. DENIES PAIN. REPORTS HUNGER, SNACK PROVIDED PT DID NOT RECIEVED DINNER. SITTING UP PLAYING CARDS WITH A FRIEND. EDUCATED ON NEW MEDICATIONS. PT REMAINS ASYMPTOMATIC THROUGH THE NIGHT. SAFETY MEASURES TAKEN, ALL NEEDS ADDRESSED.
[2023-10-24 05:08] VITALS: BP 183/62
[2023-10-24 05:33] LABS: BASOPHILS ABSOLUTE AUTO 0.04 K/mm3 (0.00-0.23); BASOPHILS PERCENT AUTO 1 % (0-2); EOSINOPHILS ABSOLUTE AUTO 0.14 K/mm3 (0.00-0.68); EOSINOPHILS PERCENT AUTO 2 % (0-6); Hematocrit 41.5 % (33.0-51.0); Hemoglobin 13.7 g/dL (11.5-16.0); IMMATURE GRAN ABSOLUTE AUTO 0.02 K/mm3 (0.00-0.10); IMMATURE GRAN PERCENT AUTO 0 % (0-1); LYMPHOCYTES ABSOLUTE AUTO 2.17 K/mm3 (0.84-5.20); LYMPHOCYTES PERCENT AUTO 32 % (21-46); MONOCYTES ABSOLUTE AUTO 0.64 K/mm3 (0.16-1.47); MONOCYTES PERCENT AUTO 9 % (4-13); Mean Corpuscular HGB 29.8 pg (26.0-34.0); Mean Corpuscular Volume 90 fL (80-100); Mean Platelet Volume 11.3 fL (9.1-12.4); NEUTROPHILS PERCENT AUTO 56 % (41-73); Platelet Count 194 K/mm3 (150-400); RDW Coefficient Variation 12.9 % (11.7-14.2); RDW Standard Deviation 42.3 fL (35.1-46.3); White Blood Cell Count 6.81 K/mm3 (4.00-11.30)
[2023-10-24 05:55] VITALS: BP 154/85
[2023-10-24 06:11] LABS: Albumin, Blood 3.3 g/dL (3.4-5.0); Bilirubin, Total 0.7 mg/dL (0.1-1.0); Bun/Creatinine Ratio 20.2 (12.0-20.0); Calcium, Blood 9.1 mg/dL (8.5-10.1); Creatinine, Blood 0.69 mg/dL (0.40-1.00); Globulin, Blood 3.4 g/dL (2.2-4.0); Potassium, Blood 4.2 mmol/L (3.5-5.5); Total Protein, Blood 6.7 g/dL (6.4-8.2)
[2023-10-24 07:27] VITALS: BP 186/85
[2023-10-24] MEDS ORDERED: Lisinopril 20 MG Tab PO SCH (09:00)
[2023-10-24] MEDS ORDERED: FLUTICASONE PRO16 GM (13:18)
[2023-10-24] MEDS ORDERED: IMITREX50 M2 PO (13:18)
[2023-10-24] MEDS ORDERED: BUDESONIDE PO (13:24)
[2023-10-24] MEDS ORDERED: ZESTRIL40 M1 PO (13:24)
[2023-10-24] MEDS ORDERED: MUPIROCIN PO (13:24)
[2023-10-24] MEDS ORDERED: GABA100 PO (13:59)
[2023-10-24] MEDS ORDERED: PANT40 PO (13:59)
[2023-10-24] MEDS ORDERED: ELIQUIS5 M2 PO (14:00)
[2023-10-24] MEDS ORDERED: METO50ER PO (14:00)
--- NOTE | 2023-10-24 15:52 | NUR ---
DC HOME WRITTEN & VERBAL DC INSTRUCTIONS GIVEN TO PT WITH FAMILY AT BEDSIDE, PT VERBALIZED GOOD UNDERSTANDING. ALL CONCERNS & QUESTIONS ADDRESSED. PIV DC'D WITH CATH TIP INTACT, NO REDNESS OR SWELLING NOTED. ECHO DONE PRIOR TO DC. PT TO PV VIA W/C WITH ALL PERSONAL BELONGINGS.
== END 2023-10-24 15:47 | disposition home or self-care (01) ==
LOC: ER 07:03 → MEDS 12:23
PROVIDERS: Emergency Medicine; Student in an Organized Health Care Education/Training Program; ADMIT Student in an Organized Health Care Education/Training Program
DX: I48.91 Unspecified atrial fibrillation (principal); I10 Essential (primary) hypertension; R29.6 Repeated falls; Z79.01 Long term (current) use of anticoagulants; Z88.2 Allergy status to sulfonamides; Z88.1 Allergy status to other antibiotic agents; Z87.891 Personal history of nicotine dependence; K21.9 Gastro-esophageal reflux disease without esophagitis; E03.9 Hypothyroidism, unspecified; Z79.82 Long term (current) use of aspirin; Z79.899 Other long term (current) drug therapy
CPT/HCPCS: 36415; 71045; 80053; 83735; 84439; 84443; 84481; 84484; 85025; 93005; 93010; 93306; 97116; 97161; 97530; 99285-25; A9270; G0378

== ENCOUNTER 2024-01-20 19:23 | Emergency (ER) | payer OTHER, MEDICARE, BC ==
[~2024-01-20] VITALS: Ht 167.6 cm; Wt 111.1 kg
[2024-01-20 22:15] VITALS: BP 157/59
== END 2024-01-20 22:30 | disposition home or self-care (01) ==
LOC: ER 19:23
DX: S00.03XA Contusion of scalp, initial encounter (principal); G44.309 Post-traumatic headache, unspecified, not intractable; I10 Essential (primary) hypertension; J45.909 Unspecified asthma, uncomplicated; K21.9 Gastro-esophageal reflux disease without esophagitis; E03.9 Hypothyroidism, unspecified; W01.198A Fall on same level from slipping, tripping and stumbling with subsequent striking against other object, initial encounter; Y92.038 Other place in apartment as the place of occurrence of the external cause; Z88.1 Allergy status to other antibiotic agents; Z88.2 Allergy status to sulfonamides; Z79.01 Long term (current) use of anticoagulants; Z79.51 Long term (current) use of inhaled steroids; Z79.890 Hormone replacement therapy; Z79.899 Other long term (current) drug therapy; Z87.891 Personal history of nicotine dependence

== ENCOUNTER 2024-03-22 13:24 | Emergency (ER) | payer MEDICARE, BC ==
[~2024-03-22] VITALS: Ht 167.6 cm; Wt 99.3 kg
[~2024-03-22 13:24] MED LIST changes: +BUDESONIDE PO; +ELIQUIS5 M2 PO; +FLUTICASONE PRO16 GM; +FLUTICASONE PRO16 GM NS; +IMITREX50 M2 PO; +METO50ER PO; +MUPIROCIN PO; +OXYB5 PO
[2024-03-22] MEDS ORDERED: METOPROLOL SUCC25 MG PO (14:12)
[2024-03-22] MEDS ORDERED: AMLODIPINE BESY10 MG PO (14:12)
[2024-03-22] MEDS ORDERED: COLESTID1 G1 PO (14:13)
[2024-03-22 14:20] LABS: BASOPHILS ABSOLUTE AUTO 0.05 K/mm3 (0.00-0.23); BASOPHILS PERCENT AUTO 1 % (0-2); EOSINOPHILS PERCENT AUTO 1 % (0-6); Hematocrit 43.9 % (33.0-51.0); Hemoglobin 14.6 g/dL (11.5-16.0); IMMATURE GRAN ABSOLUTE AUTO 0.02 K/mm3 (0.00-0.10); IMMATURE GRAN PERCENT AUTO 0 % (0-1); LYMPHOCYTES ABSOLUTE AUTO 2.26 K/mm3 (0.84-5.20); LYMPHOCYTES PERCENT AUTO 21 % (21-46); MONOCYTES ABSOLUTE AUTO 0.72 K/mm3 (0.16-1.47); MONOCYTES PERCENT AUTO 7 % (4-13); Mean Corpuscular HGB 29.3 pg (26.0-34.0); Mean Corpuscular HGB Conc 33.3 g/dL (31.5-36.5); Mean Corpuscular Volume 88 fL (80-100); Mean Platelet Volume 11.7 fL (9.1-12.4); NEUTROPHILS ABSOLUTE AUTO 7.42 K/mm3 (1.96-9.15); NEUTROPHILS PERCENT AUTO 70 % (41-73); Platelet Count 259 K/mm3 (150-400); RDW Coefficient Variation 12.7 % (11.7-14.2); RDW Standard Deviation 41.1 fL (35.1-46.3); Red Blood Cell Count 4.98 M/mm3 (3.80-5.20); White Blood Cell Count 10.57 K/mm3 (4.00-11.30)
[2024-03-22 14:28] LABS: Albumin, Blood 3.7 g/dL (3.4-5.0); Albumin/Globulin Ratio 1.1 (0.8-1.8); Bilirubin, Total 0.6 mg/dL (0.1-1.0); Calcium, Blood 9.2 mg/dL (8.5-10.1); Creatinine, Blood 0.84 mg/dL (0.40-1.00); Globulin, Blood 3.5 g/dL (2.2-4.0); Potassium, Blood 3.6 mmol/L (3.5-5.5); Total Protein, Blood 7.2 g/dL (6.4-8.2)
[2024-03-22] MEDS ORDERED: Magnesium Sulf 2 GM/Water 50ML 50 ML IV ONE (16:20)
[2024-03-22] MEDS ORDERED: Metoprolol Tartrate 1 MG/ML 5 ML VIAL IV ONE (16:20)
[2024-03-22] MEDS ORDERED: NS 1,000 ML IV SCH (16:55)
[2024-03-22 18:15] LABS: Source, Urine Clean Catch
[2024-03-22 18:36] LABS: Appearance, Urine Cloudy (Clear); Bilirubin, Urine Neg (Neg); Blood, Urine 2+ (Neg); Color, Urine Yellow (P-Yellow); Glucose Qualitative, Urine Neg (Neg); Ketones, Urine Neg (Neg); Leukocyte Esterase, Urine 3+ (Neg); Nitrite, Urine Pos (Neg); Protein, Urine 1+ (Neg); Specific Gravity, Urine 1.025 (1.003-1.022); Urobilinogen, Urine NORM (Normal)
[2024-03-22 18:43] LABS: Bacteria Many /hpf; Hyaline Casts 0-2 /lpf (0-2)
[2024-03-22 18:44] LABS: Squamous Epithelial Cells Few /hpf (Few); White Blood Cells, Urine 25-50 /hpf (0-5)
[2024-03-22 18:45] VITALS: BP 143/87
== END 2024-03-22 18:58 | disposition home or self-care (01) ==
LOC: ER 13:24
PROVIDERS: Emergency Medicine; Student in an Organized Health Care Education/Training Program
DX: I48.91 Unspecified atrial fibrillation (principal); I10 Essential (primary) hypertension; K21.9 Gastro-esophageal reflux disease without esophagitis; E03.9 Hypothyroidism, unspecified; Z87.891 Personal history of nicotine dependence; Z79.899 Other long term (current) drug therapy; Z88.1 Allergy status to other antibiotic agents; Z88.8 Allergy status to other drugs, medicaments and biological substances
CPT/HCPCS: 71046; 80053; 81001; 84484; 85025; 87077; 87086; 87186; 93005; 93010; 96365; 96366; 96375; 99285-25; J3475; J7030

== ENCOUNTER 2024-05-01 06:33 | Emergency (ER) | payer MEDICARE, BC ==
[~2024-05-01] VITALS: Ht 167.6 cm; Wt 99.3 kg
[~2024-05-01 06:33] MED LIST changes: +AMLODIPINE BESY10 MG PO; +COLESTID1 G1 PO; +METOPROLOL SUCC25 MG PO
[2024-05-01 07:02] LABS: BASOPHILS ABSOLUTE AUTO 0.03 K/mm3 (0.00-0.23); BASOPHILS PERCENT AUTO 1 % (0-2); EOSINOPHILS ABSOLUTE AUTO 0.18 K/mm3 (0.00-0.68); EOSINOPHILS PERCENT AUTO 3 % (0-6); Hematocrit 39.3 % (33.0-51.0); Hemoglobin 12.9 g/dL (11.5-16.0); IMMATURE GRAN ABSOLUTE AUTO 0.01 K/mm3 (0.00-0.10); IMMATURE GRAN PERCENT AUTO 0 % (0-1); LYMPHOCYTES ABSOLUTE AUTO 1.68 K/mm3 (0.84-5.20); LYMPHOCYTES PERCENT AUTO 30 % (21-46); MONOCYTES ABSOLUTE AUTO 0.59 K/mm3 (0.16-1.47); MONOCYTES PERCENT AUTO 11 % (4-13); Mean Corpuscular HGB 29.5 pg (26.0-34.0); Mean Corpuscular HGB Conc 32.8 g/dL (31.5-36.5); Mean Corpuscular Volume 90 fL (80-100); Mean Platelet Volume 11.4 fL (9.1-12.4); NEUTROPHILS PERCENT AUTO 55 % (41-73); Platelet Count 226 K/mm3 (150-400); RDW Coefficient Variation 13.3 % (11.7-14.2); RDW Standard Deviation 43.9 fL (35.1-46.3); Red Blood Cell Count 4.37 M/mm3 (3.80-5.20); White Blood Cell Count 5.59 K/mm3 (4.00-11.30)
[2024-05-01 07:10] LABS: Albumin, Blood 3.4 g/dL (3.4-5.0); Albumin/Globulin Ratio 0.9 (0.8-1.8); Bilirubin, Total 0.5 mg/dL (0.1-1.0); Bun/Creatinine Ratio 22.6 (12.0-20.0); Calcium, Blood 9.6 mg/dL (8.5-10.1); Creatinine, Blood 0.66 mg/dL (0.40-1.00); Globulin, Blood 3.6 g/dL (2.2-4.0)
[2024-05-01 09:41] LABS: Source, Urine Straight Cath
[2024-05-01 09:45] LABS: Appearance, Urine Clear (Clear); Bilirubin, Urine Neg (Neg); Blood, Urine Neg (Neg); Glucose Qualitative, Urine Neg (Neg); Ketones, Urine Neg (Neg); Leukocyte Esterase, Urine Neg (Neg); Nitrite, Urine Neg (Neg); Protein, Urine Neg (Neg); Specific Gravity, Urine 1.005 (1.003-1.022); Urobilinogen, Urine NORM (Normal)
[2024-05-01 09:46] LABS: Color, Urine Pale Yellow (P-Yellow)
[2024-05-01 11:10] VITALS: BP 143/62
== END 2024-05-01 12:17 | disposition home or self-care (01) ==
LOC: ER 06:33
PROVIDERS: Emergency Medicine
DX: R10.10 Upper abdominal pain, unspecified (principal); I10 Essential (primary) hypertension; J45.909 Unspecified asthma, uncomplicated; K21.9 Gastro-esophageal reflux disease without esophagitis; G43.909 Migraine, unspecified, not intractable, without status migrainosus; Z87.891 Personal history of nicotine dependence
CPT/HCPCS: 71046; 74177; 80053; 81003; 83690; 84484; 85025; 93005; 93010; 99284-25; P9612; Q9967

== ENCOUNTER → 2024-05-11 | Outpatient (CLI) | payer MEDICARE, BC ==
[2024-05-11 07:16] LABS: Source, Urine Clean Catch
[2024-05-11 10:49] LABS: Appearance, Urine Hazy (Clear); Bilirubin, Urine Neg (Neg); Blood, Urine 2+ (Neg); Glucose Qualitative, Urine Neg (Neg); Ketones, Urine Neg (Neg); Leukocyte Esterase, Urine 3+ (Neg); Nitrite, Urine Pos (Neg); Protein, Urine 2+ (Neg); Urobilinogen, Urine NORM (Normal)
[2024-05-11 11:03] LABS: Color, Urine Pale Yellow (P-Yellow)
[2024-05-11 11:06] LABS: White Blood Cells, Urine TNTC /hpf (0-5)
[2024-05-11 11:07] LABS: Bacteria Many /hpf; Squamous Epithelial Cells Few /hpf (Few); Transitional Epithelial Cells Rare /hpf (0-Rare)
== END | disposition home or self-care (01) ==
LOC: LAB SHORT 07:11 → LAB 07:11 → EDSTATUS 04-20 16:40 → LAB FUT 04-20 16:40
PROVIDERS: Legal Medicine
DX: N39.0 Urinary tract infection, site not specified (principal)
CPT/HCPCS: 81001; 87077; 87086; 87186

== ENCOUNTER → 2024-05-28 | Outpatient (CLI) | payer MEDICARE, BC ==
[2024-05-28 13:07] LABS: Source, Urine Clean Catch
[2024-05-28 15:40] LABS: Appearance, Urine Clear (Clear); Bilirubin, Urine Neg (Neg); Blood, Urine Neg (Neg); Color, Urine Yellow (P-Yellow); Glucose Qualitative, Urine Neg (Neg); Ketones, Urine Neg (Neg); Leukocyte Esterase, Urine 1+ (Neg); Nitrite, Urine Neg (Neg); Protein, Urine Neg (Neg); Specific Gravity, Urine 1.005 (1.003-1.022); Urobilinogen, Urine NORM (Normal)
[2024-05-28 15:53] LABS: Bacteria Mod /hpf; Red Blood Cells, Urine 0-2 /hpf (0-2); Squamous Epithelial Cells Few /hpf (Few)
== END ==
LOC: LAB SHORT 13:04 → LAB 13:04 → LAB FUT 05-28 09:00 → EDSTATUS 05-28 09:00
PROVIDERS: Legal Medicine
DX: N39.0 Urinary tract infection, site not specified (principal)
CPT/HCPCS: 81001; 87086

== ENCOUNTER → 2024-08-17 | Outpatient (CLI) | payer MEDICARE, BC ==
[~2024-08-17] MED LIST changes: +CIPR500 PO
[2024-08-17 08:21] LABS: Source, Urine Clean Catch
[2024-08-17 10:41] LABS: Appearance, Urine Hazy (Clear); Bilirubin, Urine Neg (Neg); Blood, Urine 2+ (Neg); Color, Urine Yellow (P-Yellow); Glucose Qualitative, Urine Neg (Neg); Ketones, Urine Neg (Neg); Leukocyte Esterase, Urine 3+ (Neg); Nitrite, Urine Neg (Neg); Protein, Urine 1+ (Neg); Urobilinogen, Urine NORM (Normal)
[2024-08-17 11:15] LABS: Bacteria Many /hpf; Squamous Epithelial Cells Few /hpf (Few); White Blood Cells, Urine TNTC /hpf (0-5)
== END | disposition home or self-care (01) ==
LOC: LAB 08:19 → LAB SHORT 08:19
PROVIDERS: Urology
DX: N39.0 Urinary tract infection, site not specified (principal); Z87.440 Personal history of urinary (tract) infections
CPT/HCPCS: 81001; 87077; 87086; 87186

== ENCOUNTER 2024-08-21 07:11 | Emergency (ER) | payer MEDICARE, BC ==
[~2024-08-21] VITALS: Ht 167.6 cm; Wt 95.2 kg
[~2024-08-21 07:11] MED LIST changes: -CIPR500 PO
[2024-08-21] MEDS ORDERED: DiphenhydrAMINE HCL 25 MG Cap PO ONE (07:45)
[2024-08-21] MEDS ORDERED: Dexamethasone Sod Phos 10 MG/ML 1ML VIAL PO ONE (07:45)
[2024-08-21] MEDS ORDERED: CIPR500 PO (07:48)
[2024-08-21] MEDS ORDERED: PRED20 PO (08:07)
[2024-08-21 08:09] VITALS: BP 159/78
== END 2024-08-21 08:10 | disposition home or self-care (01) ==
LOC: ER 07:11
DX: L50.9 Urticaria, unspecified (principal); T36.8X5A Adverse effect of other systemic antibiotics, initial encounter; J15.0 Pneumonia due to Klebsiella pneumoniae; N39.0 Urinary tract infection, site not specified; I10 Essential (primary) hypertension; E03.9 Hypothyroidism, unspecified; K21.9 Gastro-esophageal reflux disease without esophagitis; G43.909 Migraine, unspecified, not intractable, without status migrainosus; J45.909 Unspecified asthma, uncomplicated; Z87.891 Personal history of nicotine dependence; Z79.899 Other long term (current) drug therapy; Z88.1 Allergy status to other antibiotic agents; Z88.8 Allergy status to other drugs, medicaments and biological substances
CPT/HCPCS: 99282; A9270; J1100

== ENCOUNTER 2025-02-12 21:44 | Emergency (ER) | payer MEDICARE, BC ==
[~2025-02-12] VITALS: Ht 167.6 cm; Wt 99.8 kg
[~2025-02-12 21:44] MED LIST changes: +CIPR500 PO
[2025-02-12] MEDS ORDERED: Doxycycline Hyclate 100 MG TAB PO ONE (23:55)
[2025-02-13] MEDS ORDERED: Doxycycline Mo100 M1 PO ×2 (00:14→01:26)
[2025-02-13 00:55] VITALS: BP 180/76
== END 2025-02-13 00:56 | disposition home or self-care (01) ==
LOC: ER 21:44
DX: T63.301A Toxic effect of unspecified spider venom, accidental (unintentional), initial encounter (principal); L03.313 Cellulitis of chest wall; W57.XXXA Bitten or stung by nonvenomous insect and other nonvenomous arthropods, initial encounter; I10 Essential (primary) hypertension; J44.9 Chronic obstructive pulmonary disease, unspecified; K21.9 Gastro-esophageal reflux disease without esophagitis; I48.0 Paroxysmal atrial fibrillation; Z87.891 Personal history of nicotine dependence; Z79.899 Other long term (current) drug therapy; Z88.2 Allergy status to sulfonamides; Z88.8 Allergy status to other drugs, medicaments and biological substances; Z79.890 Hormone replacement therapy; Z79.01 Long term (current) use of anticoagulants
CPT/HCPCS: 99282; A9270

== ENCOUNTER 2025-03-30 09:59 | Emergency (ER) | payer MEDICARE, BC ==
[~2025-03-30] VITALS: Ht 167.6 cm; Wt 99.8 kg
[~2025-03-30 09:59] MED LIST changes: +Doxycycline Mo100 M1 PO
[2025-03-30] MEDS ORDERED: LEVSOD100 PO (11:10)
[2025-03-30] MEDS ORDERED: SOLIFENACIN SUCC5 MG PO (11:11)
[2025-03-30] MEDS ORDERED: IMITREX50 M1 PO (11:11)
[2025-03-30] MEDS ORDERED: VITAMIN D350 MC3 PO (11:12)
[2025-03-30 11:13] LABS: BASOPHILS ABSOLUTE AUTO 0.05 K/mm3 (0.00-0.23); BASOPHILS PERCENT AUTO 1 % (0-2); EOSINOPHILS ABSOLUTE AUTO 0.11 K/mm3 (0.00-0.68); EOSINOPHILS PERCENT AUTO 2 % (0-6); Hematocrit 42.6 % (33.0-51.0); Hemoglobin 14.2 g/dL (11.5-16.0); IMMATURE GRAN ABSOLUTE AUTO 0.02 K/mm3 (0.00-0.10); IMMATURE GRAN PERCENT AUTO 0 % (0-1); LYMPHOCYTES ABSOLUTE AUTO 1.61 K/mm3 (0.84-5.20); LYMPHOCYTES PERCENT AUTO 28 % (21-46); MONOCYTES ABSOLUTE AUTO 0.50 K/mm3 (0.16-1.47); MONOCYTES PERCENT AUTO 9 % (4-13); Mean Corpuscular HGB Conc 33.3 g/dL (31.5-36.5); Mean Corpuscular Volume 90 fL (80-100); NEUTROPHILS ABSOLUTE AUTO 3.47 K/mm3 (1.96-9.15); NEUTROPHILS PERCENT AUTO 60 % (41-73); NRBC ABSOLUTE 0.00 K/mm3 (0.00-0.02); NRBC Auto 0.0 /100 WBC (0.0-0.2); Platelet Count 196 K/mm3 (150-400); RDW Coefficient Variation 12.7 % (11.7-14.2); RDW Standard Deviation 41.6 fL (35.1-46.3)
[2025-03-30] MEDS ORDERED: MELA3 PO (11:13)
[2025-03-30] MEDS ORDERED: ACET500 PO (11:14)
[2025-03-30] MEDS ORDERED: B-COMPLEX1 EACH PO (11:14)
[2025-03-30] MEDS ORDERED: AZO D-MANNOSE500 M1 PO (11:15)
[2025-03-30 11:58] LABS: Alanine Aminotransfer (ALT/SGP 22.0 U/L (12-78); Albumin, Blood 3.4 g/dL (3.4-5.0); Albumin/Globulin Ratio 1.0 (0.8-1.8); Anion Gap 7.0 mmol/L (3-11); Aspartate Aminotrans (AST/SGOT 17.0 U/L (12-37); Bilirubin, Total 0.5 mg/dL (0.1-1.0); Blood Urea Nitrogen 13.0 mg/dL (8-24); CO2, Blood 26.0 mmol/L (21-32); Calcium, Blood 8.7 mg/dL (8.5-10.1); Chloride, Blood 111.0 mmol/L (98-108); Creatinine, Blood 0.71 mg/dL (0.40-1.00); Globulin, Blood 3.4 g/dL (2.2-4.0); Glucose, Blood 148.0 mg/dL (70-99); Potassium, Blood 3.5 mmol/L (3.5-5.5); Sodium, Blood 140.0 mmol/L (136-145); Total Protein, Blood 6.8 g/dL (6.4-8.2)
[2025-03-30 13:23] VITALS: BP 170/98
[2025-03-30 13:48] LABS: Source, Urine Clean Catch
[2025-03-30 13:55] LABS: Bilirubin, Urine Neg (Neg); Color, Urine Yellow (P-Yellow); Glucose Qualitative, Urine Neg (Neg); Ketones, Urine Neg (Neg); Leukocyte Esterase, Urine 2+ (Neg); Protein, Urine Neg (Neg); Specific Gravity, Urine 1.015 (1.003-1.022); Urobilinogen, Urine NORM (Normal)
[2025-03-30] MEDS ORDERED: PROM25 PO (14:14)
== END 2025-03-30 14:45 | disposition home or self-care (01) ==
LOC: ER 09:59
PROVIDERS: Emergency Medicine
DX: H81.399 Other peripheral vertigo, unspecified ear (principal); I10 Essential (primary) hypertension; J45.909 Unspecified asthma, uncomplicated; E03.9 Hypothyroidism, unspecified; K21.9 Gastro-esophageal reflux disease without esophagitis; I48.0 Paroxysmal atrial fibrillation; G43.909 Migraine, unspecified, not intractable, without status migrainosus; Z87.891 Personal history of nicotine dependence; Z88.1 Allergy status to other antibiotic agents; Z88.3 Allergy status to other anti-infective agents; Z88.2 Allergy status to sulfonamides; Z79.01 Long term (current) use of anticoagulants; Z79.890 Hormone replacement therapy; Z79.52 Long term (current) use of systemic steroids; Z79.899 Other long term (current) drug therapy
CPT/HCPCS: 80053; 81001; 85025; 87077; 87086; 87186; 93005; 93010; 99284-25; A9270

== ENCOUNTER 2025-04-21 09:17 | Emergency (ER) | payer MEDICARE, BC ==
[~2025-04-21] VITALS: Ht 162.6 cm; Wt 99.8 kg
[~2025-04-21 09:17] MED LIST changes: +AZO D-MANNOSE500 M1 PO; +B-COMPLEX1 EACH PO; +IMITREX50 M1 PO; +MELA3 PO; +PROM25 PO; +SOLIFENACIN SUCC5 MG PO; +VITAMIN D350 MC3 PO
[2025-04-21 10:01] LABS: BASOPHILS ABSOLUTE AUTO 0.03 K/mm3 (0.00-0.23); BASOPHILS PERCENT AUTO 0 % (0-2); EOSINOPHILS ABSOLUTE AUTO 0.13 K/mm3 (0.00-0.68); EOSINOPHILS PERCENT AUTO 2 % (0-6); Hematocrit 45.2 % (33.0-51.0); Hemoglobin 15.0 g/dL (11.5-16.0); IMMATURE GRAN ABSOLUTE AUTO 0.02 K/mm3 (0.00-0.10); IMMATURE GRAN PERCENT AUTO 0 % (0-1); LYMPHOCYTES ABSOLUTE AUTO 2.18 K/mm3 (0.84-5.20); LYMPHOCYTES PERCENT AUTO 31 % (21-46); MONOCYTES ABSOLUTE AUTO 0.65 K/mm3 (0.16-1.47); MONOCYTES PERCENT AUTO 9 % (4-13); Mean Corpuscular HGB Conc 33.2 g/dL (31.5-36.5); Mean Corpuscular Volume 89 fL (80-100); NEUTROPHILS ABSOLUTE AUTO 3.93 K/mm3 (1.96-9.15); NEUTROPHILS PERCENT AUTO 57 % (41-73); NRBC ABSOLUTE 0.00 K/mm3 (0.00-0.02); NRBC Auto 0.0 /100 WBC (0.0-0.2); Platelet Count 214 K/mm3 (150-400); RDW Coefficient Variation 12.9 % (11.7-14.2); RDW Standard Deviation 42.3 fL (35.1-46.3)
[2025-04-21 10:15] LABS: Alanine Aminotransfer (ALT/SGP 23.0 U/L (12-78); Albumin, Blood 3.6 g/dL (3.4-5.0); Albumin/Globulin Ratio 1.1 (0.8-1.8); Anion Gap 8.0 mmol/L (3-11); Aspartate Aminotrans (AST/SGOT 18.0 U/L (12-37); Bilirubin, Total 0.8 mg/dL (0.1-1.0); Blood Urea Nitrogen 11.0 mg/dL (8-24); CO2, Blood 26.0 mmol/L (21-32); Calcium, Blood 9.4 mg/dL (8.5-10.1); Chloride, Blood 108.0 mmol/L (98-108); Creatinine, Blood 0.68 mg/dL (0.40-1.00); Globulin, Blood 3.4 g/dL (2.2-4.0); Glucose, Blood 113.0 mg/dL (70-99); Potassium, Blood 3.7 mmol/L (3.5-5.5); Sodium, Blood 138.0 mmol/L (136-145); Total Protein, Blood 7.0 g/dL (6.4-8.2)
[2025-04-21] MEDS ORDERED: Lidocaine 2% Viscous Soln 15 ML UDC PO ONE (10:50)
[2025-04-21] MEDS ORDERED: Atropine/Scopalam/Hyoscam/PB 5 ML UDC PO ONE (10:50)
[2025-04-21 13:30] VITALS: BP 141/99
== END 2025-04-21 13:45 | disposition home or self-care (01) ==
LOC: ER 09:17
PROVIDERS: Student in an Organized Health Care Education/Training Program
DX: K21.9 Gastro-esophageal reflux disease without esophagitis (principal); I10 Essential (primary) hypertension; E03.9 Hypothyroidism, unspecified; I48.0 Paroxysmal atrial fibrillation; Z87.891 Personal history of nicotine dependence; Z88.1 Allergy status to other antibiotic agents; Z88.3 Allergy status to other anti-infective agents; Z88.2 Allergy status to sulfonamides; Z79.01 Long term (current) use of anticoagulants; Z79.890 Hormone replacement therapy; Z79.899 Other long term (current) drug therapy
CPT/HCPCS: 71045; 80053; 83690; 84484; 85025; 93005; 93010; 99285-25; A9270